=== PATIENT | male | born 1965 | race Caucasian/White ===

== ENCOUNTER 2018-11-21 17:28 | Emergency (ER) | payer SELFPAY ==
[2018-11-21 17:59] VITALS: BP 157/90; PULSE 98; RESP 16; TEMP 36.6; O2SAT 98
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
[2018-11-21] MEDS: Normal Saline 1,000 ML 1000 ML IV (18:17)
[2018-11-21 18:36] LABS: Absolute Eosinophil Count 0.19 k/cumm (0.0-0.7); Absolute Lymphocyte Count 2.26 k/cumm (1.2-3.4); Basophils % 0.7; Eosinophils % 1.3; HCT 47.2 % (40.0-50.0); HGB 16.6 g/dL (13.5-17.5); Immature Grans % 0.7; Lymphocytes % 15.6; Mean Corp. HGB Concentration 35.2 g/dL (32.0-36.0); Mean Corpuscular Hemoglobin 31.1 pg (27.0-33.0); Mean Corpuscular Volume 88.6 fL (80-95); Mean Platelet Volume 10.9 fL (8.0-11.0); Neutrophils % 72.7; Platelet Count 228 x1000/uL (130-400); RBC 5.33 m/cumm (4.50-6.00); RBC Distribution Width 13.8 % (11.8-14.1)
[2018-11-21 18:39] LABS: Absolute Monocyte Count 1.31 k/cumm (0.11-0.7); Absolute Neutrophil Count 10.54 k/cumm (1.2-6.7)
[2018-11-21] MEDS: Omnipaque 350 MG/ML 100 ML BTL IJ (18:43)
[2018-11-21 18:51] LABS: ALT 67 U/L (12-78); AST 54 U/L (15-37); Albumin 3.7 g/dL (3.4-5.0); Alkaline Phosphatase 66 U/L (46-116); Anion Gap 13.6 mmol/L (3-11); BUN 13 mg/dL (7-18); Bilirubin, Total 0.3 mg/dL (0.2-1.0); CO2 21.4 mmol/L (21.0-32.0); CREATININE 1.13 mg/dL (0.70-1.30); Calcium 8.9 mg/dL (8.5-10.1); Chloride 102 mmol/L (98-107); Glucose 132 mg/dL (70-100); Magnesium 2.2 mg/dL (1.8-2.4); Potassium 3.8 mmol/L (3.5-5.1); Sodium 137 mmol/L (136-145); Total Protein 7.9 g/dL (6.4-8.2)
[2018-11-21 19:00] VITALS: BP 160/94; PULSE 100; RESP 18; O2SAT 96
[2018-11-21 19:00] LABS: Troponin I < 0.05 ng/mL (0.00-0.06)
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
--- NOTE | 2018-11-21 19:31 | NUR.NOTE ---
Nursing Note: C-collar removed by Dr. Sanabria.
[2018-11-21] MEDS: Ketorolac 30 MG/ML VIAL IVP (19:52)
[2018-11-21] MEDS: oxyCODONE 5 MG TAB PO (19:53)
[2018-11-21 20:08] LABS: Bilirubin Negative (Negative); Blood Negative (Negative); Clarity Clear (Clear); Glucose Negative (Negative); Ketones Negative (Negative); Leukocyte Esterase Negative (Negative); Nitrite Negative (Negative); Specific Gravity <= 1.005 (1.005-1.025); Urobilinogen 0.2 EU/dL (Up TO 0.2); pH 5.5 (5-8)
[2018-11-21] MEDS: oxyCODONE 5 MG TAB 15 MG PO (20:22)
[2018-11-21 20:30] VITALS: BP 159/93; PULSE 100; RESP 16; TEMP 37.3; O2SAT 96
== END 2018-11-21 20:29 | disposition home or self-care (01) ==
PROVIDERS: Emergency Provider Physician Assistant; PCP Nurse Practitioner
DX: S40.011A Contusion of right shoulder, initial encounter (principal); S20.222A Contusion of left back wall of thorax, initial encounter; S16.1XXA Strain of muscle, fascia and tendon at neck level, initial encounter; V86.55XA Driver of 3- or 4- wheeled all-terrain vehicle (ATV) injured in nontraffic accident, initial encounter; R91.8 Other nonspecific abnormal finding of lung field; F17.210 Nicotine dependence, cigarettes, uncomplicated
CPT/HCPCS: 36415; 74177; 80053; 96361; 96374; 96375; 99285; 70450; 70486; 71260; 72125; 80320; 81003; 83735; 84484; 85025; 99284; J1885; J3490; L0172